=== PATIENT | male | born 1965 | race Caucasian/White ===

== ENCOUNTER 2016-09-06 19:06 | Emergency (ER) | payer MEDICARE ==
[2016-09-06 19:31] VITALS: BP 183/116
[2016-09-06 19:50] LABS: Hemoglobin 17.2 gm/dL (13.5-18.0); Mean Cell Volume 91.9 fl (78-100); Mean Corpuscular Hemoglobin 32.3 pg (27-31); Mean Corpuscular Hgb Conc 35.1 g/dl (32-36); Mean Platelet Volume 10.3 fl (6.0-9.5); Neutrophil # 5.3 K/mm3 (1.3-6.0); Neutrophil % 57.4 % (42-75.0); Platelet Count 165 K/mm3 (150-450); Red Blood Count 5.33 M/mm3 (4.7-6.0); Red Cell Distribution Width 13.4 % (11.5-14.0); White Blood Count 9.2 K/mm3 (4.0-10.5)
[2016-09-06 20:04] LABS: Albumin * 3.6 gm/dl (3.4-5.0); Anion Gap 16.6 mmol/L (6.8-13.8); BUN/Creatinine Ratio 15.5 (9.0-21.6); Bilirubin, Total 0.3 mg/dL (0.0-1.1); Ca. Corrected For Albumin 8.8 mg/dL (8.4-10.2); Calcium * 8.8 mg/dL (7.9-10.9); Carbon Dioxide 23.4 mmol/L (24-32.6); Total Protein 7.8 gm/dL (6.2-8.2)
--- NOTE | 2016-09-06 21:18 | ERNOTE ---
Abdominal HPI - General Chief Complaint: Abdominal Pain Time Seen by Provider: 09/06/16 21:08 Source: patient Exam Limitations: no limitations - Immun/Allergies/Home Medications Immunizatons: IMMUNIZATION HX Immunizations Up to Date Yes History of Influenza Vaccine No Hx Pneumococcal Vaccination No Allergies/Adverse Reactions: Allergies No Known Allergies Allergy (Verified 02/10/15 11:26) Home Medications: HOME MEDICATIONS Acetaminophen [Tylenol] 650 mg PO QID PRN #0 tablet 01/21/13 [Last Taken Unknown ] Albuterol Sulfate/Ipratropium [Duoneb 2.5-0.5MG/3ML Soln] 3 ml IH Q4H PRN #0 nebu 01/21/13 [Last Taken Unknown] Lisinopril [Zestril] 10 mg PO DAILY #0 tablet 01/21/13 [Last Taken Unknown] Insulin Glargine,Hum.rec.anlog [Lantus] 100 unit SQ BID 05/22/13 [Last Taken Unknown] Rosuvastatin Calcium [Crestor] 20 mg PO HS 08/26/13 [Last Taken Unknown] Carisoprodol [Soma] 350 mg PO QID #30 tab 09/02/15 [Last Taken Unknown] Oxycodone HCl/Acetaminophen [Percocet 5-325 mg Tablet] 1 each PO Q4H PRN #30 tablet 09/02/15 [Last Taken Unknown] - History of Present Illness Narrative: 3 days of increasing abdominal pain in the epigastrium. No vomiting. Diarrhea today Timing: getting worse Quality: moderate, severe, cramping, fullness Activities at Onset: none Modifying Factors - (Improves): Present: lying down Modifying Factors - (Worsens): Present: eating, sitting up Associated Symptoms: Absent: nausea, vomiting Review of Systems - Review of Systems Constitutional: Absent: recent illness, fever, chills EYE: Present: no symptoms reported ENT: Present: no symptoms reported Respiratory: Present: no symptoms reported Cardiology: Present: no symptoms reported Gastrointestinal/Abdominal: Present: See HPI, diarrhea, abdominal pain, eating less - today Genitourinary: Present: no symptoms reported Musculoskeletal: Present: no symptoms reported Skin: Present: no symptoms reported Neurological: Present: no symptoms reported Endocrine: Present: no symptoms reported Hematologic/Lymphatic: Present: no symptoms reported Psych: Present: no symptoms reported - Patient's Past Medical History Patient History - Medical: Diabetes Type 2 Insulin Dependent, Other Patient History - Cancer: No Hx of Cancer Patient History - Surgical Procedures: Back Surgery, Other - Family History motehr Family History - Medical: - Social History Living Situations: spouse Smoking Status: Current every day smoker Alcohol Use: none Drug Use: none Physical Exam - Physical Exam General Appearance: Present: wd/wn, alert, no apparent distress Eye Exam: Normal inspection: bilateral Ears, Nose, Throat: Present: hearing grossly normal Neck: Present: normal inspection, nontender Respiratory: Present: no respiratory distress, no accessory muscle use Cardiovascular/Chest: Present: regular rate, rhythm, no murmur Gastrointestinal/Abdominal: Present: normal bowel sounds, tenderness - epigastrium, distended - mildly, more firm upper quads. Absent: guarding, rebound Extremity Exam: Present: normal inspection, normal range of motion Neurological Exam: Present: alert, oriented, normal mood/affect, no motor/ sensory deficits Skin Exam: Present: normal color, warm/dry ED Progress - Results and Orders Patient's Lab Results:: I have reviewed the patient's lab results. Results and Orders: Laboratory Tests 09/06/16 09/06/16 09/06/16 19:50 19:50 21:00 WBC 9.2 Hgb 17.2 Hct 49.0 Plt Count 165 Sodium 136 Potassium 4.0 Chloride 100 Carbon Dioxide 23.4 L Anion Gap 16.6 H BUN 13 Creatinine 0.84 Random Glucose 234 H Calcium 8.8 Total Bilirubin 0.3 AST 29 ALT 49 Alkaline Phosphatase 92 Total Protein 7.8 Albumin 3.6 Amylase 35 Lipase 85 Urine Color Yellow Urine Appearance Clear Urine pH 7.0 Ur Specific [place] 1.015 Urine Protein Negative Urine Glucose (UA) >=1000 H Urine Ketones Negative Urine Blood Negative Urine Nitrate Negative Urine Bilirubin Negative Urine Urobilinogen Normal Ur Leukocyte Esterase Negative Urine RBC None seen Urine WBC None seen Ur Epithelial Cells 0-5 Urine Bacteria None seen Urine Culture Comments No culture indicated - Vital Signs Patient's Vital Signs:: I have reviewed the patient's vital signs. Vital Signs: Vital Signs 09/06/16 19:28 Temperature 37.1 C Pulse Rate 93 Respiratory 20 Rate Blood Pressure 183/116 O2 Sat by Pulse 97 Oximetry - X-Ray X-Ray #1 X-Ray: abdomen Interpretation: Interp. by me X-ray Comments: non-specific gas pattern and moderate stool retention - Progress/Reassessment Chief Complaint: Abdominal Pain Departure - Departure Clinical Impression: Constipation Qualifiers: Constipation type: unspecified constipation type Qualified Code(s): K59.00 - Constipation, unspecified Disposition: Nursing Home Condition: Good Instructions: Constipation, Adult, [id number] Additional Instructions: Start miralax 1 scoop daily in 8 ounces of water.
[2016-09-06 21:29] LABS: Urine Bilirubin Negative (NEGATIVE); Urine Blood Negative /ul (NEGATIVE); Urine Ketone Negative (NEGATIVE); Urine Nitrite Negative (NEGATIVE); Urine Protein Negative (NEGATIVE); Urine Specific Gravity 1.015 SP.GR. (1.005-1.030); Urine Urobilinogen Normal (NORMAL)
[2016-09-06 21:47] LABS: Urine Appearance Clear; Urine Bacteria None Seen; Urine Color Yellow; Urine RBC None Seen /hpf (0-5); Urine WBC None Seen /hpf (0-5)
== END 2016-09-06 23:45 ==
LOC: ER 19:06
DX: K59.00 Constipation, unspecified (principal)

== ENCOUNTER 2016-10-06 17:12 | Emergency (ER) | payer MEDICARE ==
[2016-10-06 17:20] VITALS: BP 111/56
[2016-10-06] MEDS ORDERED: HYDROcodone/ACETAMINOPHEN 1 EACH TABLET PO ONE (18:37)
[2016-10-06] MEDS ORDERED: HYDROcodone/ACETAMINOPHEN 1 EACH TABLET ONE (18:54)
[2016-10-06] MEDS ORDERED: NEOMY SULF/POLYMYX B SULF/HC 100 DROP BTL ONE (19:23)
[2016-10-06] MEDS ORDERED: NEOMY SULF/POLYMYX B SULF/HC 100 DROP BTL LEFT EAR ONE (19:31)
--- NOTE | 2016-10-06 19:35 | ERNOTE ---
ENT HPI Date of Service: 10/06/16 Presenting Symptoms: other - left ear pain Time Seen by Provider: 10/06/16 17:37 Source: patient Exam Limitations: no limitations - Immun/Allergies/Home Medications Immunizations: IMMUNIZATION HX Immunizations Up to Date Yes History of Influenza Vaccine No Hx Pneumococcal Vaccination No Allergies/Adverse Reactions: Allergies Allergy/AdvReac Type Severity Reaction Status Date / Time No Known Allergies Allergy Verified 10/06/16 17:20 Home Medications: HOME MEDICATIONS Acetaminophen [Tylenol] 650 mg PO QID PRN #0 tablet 01/21/13 [Last Taken Unknown ] Albuterol Sulfate/Ipratropium [Duoneb 2.5-0.5MG/3ML Soln] 3 ml IH Q4H PRN #0 nebu 01/21/13 [Last Taken Unknown] Lisinopril [Zestril] 10 mg PO DAILY #0 tablet 01/21/13 [Last Taken Unknown] Insulin Glargine,Hum.rec.anlog [Lantus] 100 unit SQ BID 05/22/13 [Last Taken Unknown] Rosuvastatin Calcium [Crestor] 20 mg PO HS 08/26/13 [Last Taken Unknown] Carisoprodol [Soma] 350 mg PO QID #30 tab 09/02/15 [Last Taken Unknown] Oxycodone HCl/Acetaminophen [Percocet 5-325 mg Tablet] 1 each PO Q4H PRN #30 tablet 09/02/15 [Last Taken Unknown] Sulfamethoxazole/Trimethoprim [Bactrim Ds] 1 tab PO BID #30 tablet 10/06/16 [ Last Taken Unknown] - History of Present Illness Narrative: patient presents to ED from [facility] with complaints of left ear pain x 2 weeks progressively worse. Patient states that he has been on Amoxicillin x 1 week without improvement. Complains of worsening left ear pain radiating into left jaw. Date (Duration): 09/22/16 Severity: Present: moderate ENT Location: Present: ear (L) Prearrival Treatment: Present: prescription meds Modifying Factors - Improves: Reports: nothing Modifying Factors - Worsens: Reports: activity, coughing Associated Symptoms - ENT: Reports: fever, nasal congestion/drainage, facial pain/swelling. Denies: malaise, poor fluid intake, cough, voice change, sore throat, tooth pain, jaw swelling, change in hearing, ear drainage, headache Prior Treament: Reports: recently seen, treated by physician, currently on antibiotics Review of Systems - Review of Systems Constitutional: Present: fever, chills. Absent: recent illness, diaphoresis, weakness, fatigue, malaise, weight loss EYE: Absent: eye pain, eye discharge, blurred vision, double vision ENT: Present: ear pain, nasal drainage. Absent: ear discharge, pulling on ears , nose pain, nose congestion, sore throat, throat swelling Respiratory: Absent: shortness of breath, cough, orthopnea, wheezing, stridor Cardiology: Absent: chest pain, palpitations, syncope, edema Gastrointestinal/Abdominal: Present: no symptoms reported. Absent: nausea, vomiting, diarrhea Genitourinary: Present: no symptoms reported Musculoskeletal: Present: no symptoms reported Skin: Present: no symptoms reported Neurological: Present: no symptoms reported Endocrine: Present: no symptoms reported Hematologic/Lymphatic: Present: no symptoms reported - Patient's Past Medical History Patient History - Medical: Diabetes Type 2 Insulin Dependent, Other Patient History - Cardiac/Respiratory: No pertinent hx Patient History - Cancer: No Hx of Cancer Patient History - Surgical Procedures: Back Surgery, Other Patient History - Other: None - Family History motehr Family History - Medical: - Social History Living Situations: spouse Abuse History: No History of abuse Psych History: No pertinent hx Smoking Status: Current every day smoker Have you smoked in the past 12 months: Yes Do you dip or chew tobacco: No Alcohol Use: none Drug Use: none - Immunizations Immunizations Up to Date: Yes Hx Pneumococcal Vaccination: No History of Influenza Vaccine: No Physical Exam - Physical Exam General Appearance: Present: wd/wn, alert, no apparent distress Eye Exam: Normal inspection: bilateral, PERRL: bilateral Ears, Nose, Throat: Present: hearing grossly normal, abnormal TM (L) - reddened TM, reddened ear canal with drainage, warm/tender outer ear and tragus, sinus pain/drainage, pharyngeal erythema. Absent: abnormal TM (R), cerumen impaction , nasal congestion, normal pharynx, pharyngeal swelling, tonsillar exudate, tonsillar swelling, dry mucous membranes Neck: Present: normal inspection, nontender, full range of motion. Absent: lymphadenopathy (R), lymphadenopathy (L) Respiratory: Present: no respiratory distress, normal breath sounds, no accessory muscle use, chest nontender, lungs clear Cardiovascular/Chest: Present: regular rate, rhythm, no murmur, normal peripheral pulses Peripheral Pulses: N=norm/S=strong/W=weak/B=bound/A=absent: Radial (R): Normal, Radial (L): Normal Gastrointestinal/Abdominal: Present: normal bowel sounds, nontender, nondistended, soft, no organomegaly Rectal Exam: Present: deferred Male Genitals Exam: Present: deferred Back Exam: Present: normal range of motion Extremity Exam: Present: normal inspection, non-tender, no edema, normal range of motion Neurological Exam: Present: alert, oriented, normal mood/affect, no motor/ sensory deficits Skin Exam: Present: normal color, warm/dry Lymphatic Exam: Present: no adenopathy ED Progress - Results and Orders Patient's Lab Results:: I have reviewed the patient's lab results. - Vital Signs Patient's Vital Signs:: I have reviewed the patient's vital signs. Vital Signs: Vital Signs 10/06/16 17:15 Temperature 35.9 C L Pulse Rate 86 Respiratory 14 Rate Blood Pressure 111/56 O2 Sat by Pulse 96 Oximetry - Progress/Reassessment Chief Complaint: Earache Progress:: Unchanged Departure Clinical Impression: Cellulitis of left ear Otitis externa Qualifiers: Otitis externa type: unspecified type Laterality: left Chronicity: acute Qualified Code(s): H60.502 - Unspecified acute noninfective otitis externa, left ear - Departure Disposition: Long Term Condition: Good Instructions: Cellulitis, Adult, [id number], Otitis Externa, [id number] Additional Instructions: No Q tips, ear plugs or ear buds. Follow up in 48 hours to assess improvement. Stop Amoxicillin. Cortisporin ear drops 4x a day Referrals: [Primary Care Provider] - Prescriptions: Sulfamethoxazole/Trimethoprim [Bactrim Ds] 1 tab PO BID #30 tablet
== END 2016-10-06 19:40 ==
LOC: ER 17:12
DX: H60.12 Cellulitis of left external ear (principal); H60.502 Unspecified acute noninfective otitis externa, left ear; F17.210 Nicotine dependence, cigarettes, uncomplicated

== ENCOUNTER 2019-07-01 09:33 | Inpatient (IN) ==
[2019-07-01] MEDS ORDERED: ALBUTEROL SULFATE/IPRATROPIUM 3 ML NEBU IH ONE ×2 (09:38→09:41)
[2019-07-01] MEDS ORDERED: METHYLPREDNISOLONE SOD SUCC/PF 40 MG/ML VIAL IV ONE (09:41)
--- NOTE | 2019-07-01 09:49 | ERNOTE ---
Dyspnea - Date Date of Service: 07/01/19 - General Presenting Symptoms: shortness of breath Time Seen by Provider: 07/01/19 09:35 Source: patient Exam Limitations: other - The history was slightly limited due to his dyspnea, tachypnea, and hypoxia, since he is at risk of respiratory decompensation. - Immun/Allergies/Home Medications Immunizations: IMMUNIZATION HX Immunizations Up to Date Yes History of Influenza Vaccine No Hx Pneumococcal Vaccination No Allergies/Adverse Reactions: Allergies No Known Allergies Allergy (Verified 07/01/19 12:53) Home Medications: HOME MEDICATIONS gabapentin 600 mg tablet 600 mg PO TID #90 tab 11/17/18 [Last Taken Unknown] ipratropium-albuterol 0.5 mg-3 mg(2.5 mg base)/3 mL nebulization soln 3 ml IH Q4H PRN #180 ml 11/17/18 [Last Taken Unknown] levalbuterol tartrate 45 mcg/actuation aerosol inhaler 2 inh IH Q4H #15 g 11/17/18 [Last Taken Unknown] lisinopril 10 mg tablet 10 mg PO DAILY #30 tab 11/17/18 [Last Taken 06/29/19] tramadol 50 mg tablet 50 mg PO Q6H PRN #60 tab 11/18/18 [Last Taken Unknown] insulin detemir U-100 100 unit/mL subcutaneous solution 100 unit SUBCUT BID #60 ml 01/21/19 [Last Taken Unknown] Albuterol Sulfate/Ipratropium [Duoneb 2.5-0.5MG/3ML Soln] 3 ml INHALATION QID #150 vial 05/11/19 [Last Taken Unknown] Oxybutynin Chloride [Ditropan Xl] 10 mg PO DAILY 07/01/19 [Last Taken Unknown] busPIRone HCL [Buspar] 10 mg PO BID 07/01/19 [Last Taken Unknown] - History of Present Illness Narrative: This patient is a 54-year-old male who is here with shortness of breath. He has a history of COPD and is on albuterol. He used one nebulizer treatment about 2 hours ago. His symptoms began on Saturday, 2 days ago. He feels like he has caught a cold. He has stuffy had and runny nose. He has a cough which has been productive. He does not feel that he has had a fever. He denies chest pain. He is not on home oxygen. He was here recently (past few months) and told he had fluid in his lungs. He denies heart disease. The past medical history includes: COPD, depression, DM, GERD, HTN and HLD. The social history is positive for current tobacco use. Review of Systems - Review of Systems Constitutional: Absent: fever EYE: Present: no symptoms reported ENT: Present: nose congestion, nasal drainage Respiratory: Present: shortness of breath, cough Cardiology: Absent: chest pain Gastrointestinal/Abdominal: Absent: nausea, vomiting, diarrhea Genitourinary: Absent: frequency, dysuria Musculoskeletal: Present: no symptoms reported Skin: Present: no symptoms reported Neurological: Absent: headache Endocrine: Present: other - He is diabetic. Hematologic/Lymphatic: Present: no symptoms reported Psych: Present: no symptoms reported Medical History (Last Reviewed 07/01/19 @ 12:53 by Mirna Win RN) Hyperlipidemia associated with type 2 diabetes mellitus (Chronic) New lab database Uncontrolled diabetes mellitus (Chronic) bmp, hba1c Current every day smoker (Chronic) stop smoking Cardiac dysrhythmia (Acute) ecg, 24 hr holter, echo MRSA (methicillin resistant Staphylococcus aureus) COPD (chronic obstructive pulmonary disease) Onset Date: Unknown Chronic GERD Onset Date: Unknown Depression Onset Date: Unknown Diabetes Onset Date: Unknown Hyperlipidemia due to dietary fat intake Onset Date: Unknown Hypertension Onset Date: Unknown Sexual dysfunction Onset Date: Unknown Surgical History: Surgical History (Last Reviewed 07/01/19 @ 12:53 by Mirna Win RN) History of back surgery Onset Date: 08/2005 Spine/Hip fusion L-5 History of carpal tunnel release Onset Date: 04/11/00 04/11/2000 Dr Villanueva- Right hand 04/29/2000 Left hand Hx of colonoscopy with polypectomy Onset Date: 08/28/13 - tubular adenoma x2, hyperplastic polyp x2. diverticulosis. Recheck in 5 years Hx of nasal septoplasty Onset Date: 01/24/06 Hx of tonsillectomy Onset Date: Unknown Family History: Family History (Last Reviewed 07/01/19 @ 12:53 by Mirna Win RN) Sister Alive and well Father Multiple sclerosis Mother Cancer Breast Cancer Social History: (Last Reviewed 07/01/19 @ 12:53 by Mirna Win RN) Social History: Marital status: household members: spouse number of children: 4 current occupational status: disabled Highest education level completed: Associate degree: occupat Service: Yes Tobacco: Smoking Status: Current every day smoker Alcohol: alcohol intake: never Dietary Habits: caffeine: No Physical Exam - Physical Exam General Appearance: Present: wd/wn, alert, moderate distress Head Exam: Present: normal inspection, no evidence of injury Eye Exam: Normal inspection: bilateral Ears, Nose, Throat: Present: normal ENT inspection Neck: Present: normal inspection. Absent: lymphadenopathy (R), lymphadenopathy (L) Respiratory: Present: respiratory distress, wheezing Cardiovascular/Chest: Present: no murmur, tachycardia Gastrointestinal/Abdominal: Present: normal bowel sounds, nontender, nondistended, soft Back Exam: Present: normal inspection Extremity Exam: Present: normal inspection Neurological Exam: Present: alert, normal mood/affect, no motor/sensory deficits - No gross lateralizing deficit Skin Exam: Present: warm/dry, pallor - Or grayish color Progress - Results and Orders Patient's Lab Results:: I have reviewed the patient's lab results. - Vital Signs Patient's Vital Signs:: I have reviewed the patient's vital signs. Vital Signs: Vital Signs 07/01/19 09:42 Temperature 36.5 C Pulse Rate 104 H Respiratory Rate 29 H Blood Pressure 162/119 H O2 Sat by Pulse Oximetry 86 L - EKG EKG #1 EKG read: Interp. by me EKG Comments: Sinus rhythm with premature complexes Rate 106 Right axis deviation Nonspecific T wave abnormalities. There are premature beats involving V4, V5, and V6 that limit interpretation. It overall appears similar to a previous tracing of 02/10/2015 EKG #2 EKG read: Interp. by me EKG Comments: Sinus tachycardia Rate 110 Right axis deviation Nonspecific ST-T wave abnormalities. Compared to the prior EKG, the lateral leads are more usable. Compared to the EKG from January,, the nonspecific changes appear to be increased. - X-Ray X-Ray #2 X-Ray: chest Interpretation: Reviewed by me X-ray Comments: TWO VIEW CHEST Comparison: 07/01/2019, 05/11/2019 Technique: Upright frontal lateral views of the chest were obtained. Findings: The cardiac silhouette is borderline in size. The mediastinum and hilum are with in normal limits. There is central pulmonary congestion with interstitial prominence, suggesting interstitial edema. The lung markings are increased in the right lung base compared to the 05/11/2019 study, concerning for the possibility of pneumonia. The remaining lung mccray are clear.. IMPRESSION: 1. PULMONARY CONGESTION WITH SUGGESTION OF EARLY INTERSTITIAL EDEMA. 2. INCREASED PARENCHYMAL DENSITY IN THE RIGHT INFRAHILAR/RIGHT LOWER LUNG ZONE, CONCERNING FOR DEVELOPING PNEUMONIA. Electronically signed by Jakub Winchester M.D.. X-Ray #1 X-Ray: chest Interpretation: Reviewed by me X-ray Comments: HISTORY: dyspnea, hypoxia ONE VIEW CHEST Comparison: 05/11/2019 Technique: A single portable AP view of the chest were obtained. Findings: The cardiac silhouette is borderline in size, but unchanged. The mediastinum and hilum are unchanged. The central pulmonary vascularity is prominent with mild prominence of the interstitial markers. I do not see evidence for an effusion. There is questionable increased density in the right infrahilar area. IMPRESSION: 1. CENTRAL PULMONARY CONGESTION WITH MILDLY PROMINENT INTERSTITIAL MARKINGS SUGGESTING EARLY INTERSTITIAL EDEMA. 2. QUESTIONABLE INFILTRATE IN THE RIGHT INFRAHILAR AREA; THIS MAY PROJECTIONAL ON THIS PORTABLE STUDY. FOLLOW-UP PA AND LATERAL CHEST X-RAY IS RECOMMENDED WITH THE PATIENT'S CONDITION PERMITS Electronically signed by Jakub Winchester M.D.. Plan - Plan Plan: He was initially given Solu-Medrol and continuous Nebulizer treatments for the first hour. He was feeling much better after that. With the CXR finding and elevated BNP, he was given a low dose of Lasix. 07/01/19 12:12 He became hypoxic without oxygen, after going to x-ray. We discussed the labs and x-rays. He is willing to stay. 07/01/19 12:18 Dr. Edwards agrees to admit the patient. Departure Clinical Impression: CHF (congestive heart failure), COPD exacerbation Pneumonia Qualifiers: Pneumonia type: due to unspecified organism Laterality: bilateral Lung location: unspecified part of lung Qualified Code(s): J18.9 - Pneumonia, unspecified organism - Departure Disposition: Still a patient Condition: Stable
[2019-07-01 10:08] LABS: Hematocrit 42.7 % (42.0-52.0); Hemoglobin 14.2 gm/dL (13.5-18.0); Mean Cell Volume 96.6 fl (78-100); Mean Corpuscular Hemoglobin 32.1 pg (27-31); Mean Corpuscular Hgb Conc 33.3 g/dl (32-36); Mean Platelet Volume 9.9 fl (8-11.3); Neutrophil # 9.8 K/mm3 (1.3-6.0); Neutrophil % 84.9 % (42-75.0); Platelet Count 181 K/mm3 (150-450); Red Blood Count 4.42 M/mm3 (4.7-6.0); Red Cell Distribution Width 14.6 % (11.5-14.0); White Blood Count 11.5 K/mm3 (4.0-10.5)
[2019-07-01 10:36] LABS: Albumin * 3.4 gm/dl (3.4-5.0); Anion Gap 13.5 mmol/L (6.8-13.8); Ca. Corrected For Albumin 8.6 mg/dL (8.4-10.2); Calcium * 8.4 mg/dL (7.9-10.9); Carbon Dioxide 26.6 mmol/L (24-32.6); Potassium 4.1 mmol/L (3.4-4.6); Total Protein 7.1 gm/dL (6.2-8.2)
[2019-07-01] MEDS ORDERED: FUROSEMIDE 10 MG/ML VIAL IV ONE (11:29)
[2019-07-01] MEDS ORDERED: cefTRIAXone SODIUM 1,000 MG/100 ML BAG IV ONE (12:07)
[2019-07-01] MEDS ORDERED: NON-FORMULARY 1 DOSE DOSE IV SCH (12:15)
--- NOTE | 2019-07-01 13:10 | HP ---
Chief Complaint - Chief Complaint Date of Service: 07/01/19 Time of Service: 12:50 Chief Complaint: Shortness of breath History of Present Illness: Jakub musa is a 54-year-old white male with known COPD and continued nicotine abuse. Became acutely short of breath today and presented to the emergency room where he was found to have some fluid overload and acute exacerbation of COPD and pneumonia. He has been coughing but minimally productive. He has received diuretics and respiratory therapy treatment in the emergency room. Cultures have been drawn and antibiotics started. He is admitted to inpatient status but all confirmed that appropriateness. Medical History (Last Reviewed 07/01/19 @ 12:53 by Mirna Win RN) Hyperlipidemia associated with type 2 diabetes mellitus (Chronic) New lab database Uncontrolled diabetes mellitus (Chronic) bmp, hba1c Current every day smoker (Chronic) stop smoking Cardiac dysrhythmia (Acute) ecg, 24 hr holter, echo MRSA (methicillin resistant Staphylococcus aureus) COPD (chronic obstructive pulmonary disease) Onset Date: Unknown Chronic GERD Onset Date: Unknown Depression Onset Date: Unknown Diabetes Onset Date: Unknown Hyperlipidemia due to dietary fat intake Onset Date: Unknown Hypertension Onset Date: Unknown Sexual dysfunction Onset Date: Unknown Surgical History: Surgical History (Last Reviewed 07/01/19 @ 12:53 by Mirna Win RN) History of back surgery Onset Date: 08/2005 Spine/Hip fusion L-5 History of carpal tunnel release Onset Date: 04/11/00 04/11/2000 Dr Villanueva- Right hand 04/29/2000 Left hand Hx of colonoscopy with polypectomy Onset Date: 08/28/13 - tubular adenoma x2, hyperplastic polyp x2. diverticulosis. Recheck in 5 years Hx of nasal septoplasty Onset Date: 01/24/06 Hx of tonsillectomy Onset Date: Unknown Family History: Family History (Last Reviewed 07/01/19 @ 12:53 by Mirna Win RN) Sister Alive and well Father Multiple sclerosis Mother Cancer Breast Cancer Social History: (Last Reviewed 07/01/19 @ 12:53 by Mirna Win RN) Social History: Marital status: household members: spouse number of children: 4 current occupational status: disabled Highest education level completed: Associate degree: occupat Service: Yes Tobacco: Smoking Status: Current every day smoker Alcohol: alcohol intake: never Dietary Habits: caffeine: No Immunizations: IMMUNIZATION HX Immunizations Up to Date Yes History of Influenza Vaccine No Hx Pneumococcal Vaccination No Allergies/Adverse Reactions: Allergies Allergy/AdvReac Type Severity Reaction Status Date / Time No Known Allergies Allergy Verified 07/01/19 12:53 Home Medications: HOME MEDICATIONS gabapentin 600 mg tablet 600 mg PO TID #90 tab 11/17/18 [Last Taken Unknown] ipratropium-albuterol 0.5 mg-3 mg(2.5 mg base)/3 mL nebulization soln 3 ml IH Q4H PRN #180 ml 11/17/18 [Last Taken Unknown] levalbuterol tartrate 45 mcg/actuation aerosol inhaler 2 inh IH Q4H #15 g 11/17/18 [Last Taken Unknown] lisinopril 10 mg tablet 10 mg PO DAILY #30 tab 11/17/18 [Last Taken 06/29/19] tramadol 50 mg tablet 50 mg PO Q6H PRN #60 tab 11/18/18 [Last Taken Unknown] insulin detemir U-100 100 unit/mL subcutaneous solution 100 unit SUBCUT BID #60 ml 01/21/19 [Last Taken Unknown] Albuterol Sulfate/Ipratropium [Duoneb 2.5-0.5MG/3ML Soln] 3 ml INHALATION QID #150 vial 05/11/19 [Last Taken Unknown] Exam - Exam Vital Signs: Vital Signs - Last Taken Temp 37.2 C 07/01/19 12:54 Pulse 105 H 07/01/19 12:54 Resp 16 07/01/19 12:54 BP 155/86 H 07/01/19 12:54 Pulse Ox 90 L 07/01/19 12:54 Diagnostic Studies: Abnormal Lab Results 07/01/19 07/01/19 07/01/19 Range/Units 09:50 09:50 10:00 WBC 11.5 H (4.0-10.5) K/mm3 RBC 4.42 L (4.7-6.0) M/mm3 MCH 32.1 H (27-31) pg RDW 14.6 H (11.5-14.0) % Immature Gran % (Auto) 0.50 H (0.001-0.429) % Immature Gran # (Auto) 0.06 H (0.000-0.0310) K/mm3 Neutrophils % 84.9 H (42-75.0) % Lymphocytes % 6.9 L (20-51) % Neutrophils # 9.8 H (1.3-6.0) K/mm3 Lymphocytes # 0.80 L (1.5-3.5) k/mm3 Total CO2 25.2 H (19.0-24.0) mmol/L Plasma Sodium 144 H (130-142) mmol/L Random Glucose 201 H (70-110) mg/dL B-Natriuretic Peptide 1455 H (5-175) pg/mL Laboratory Results WBC 11.5 K/mm3 (4.0-10.5) H 07/01/19 09:50 RBC 4.42 M/mm3 (4.7-6.0) L 07/01/19 09:50 Hgb 14.2 gm/dL (13.5-18.0) 07/01/19 09:50 Hct 42.7 % (42.0-52.0) 07/01/19 09:50 MCV 96.6 fl (78-100) 07/01/19 09:50 MCH 32.1 pg (27-31) H 07/01/19 09:50 MCHC 33.3 g/dl (32-36) 07/01/19 09:50 RDW 14.6 % (11.5-14.0) H 07/01/19 09:50 Plt Count 181 K/mm3 (150-450) 07/01/19 09:50 MPV 9.9 fl (8-11.3) 07/01/19 09:50 Immature Gran % (Auto) 0.50 % (0.001-0.429) H 07/01/19 09:50 Immature Gran # (Auto) 0.06 K/mm3 (0.000-0.0310) H 07/01/19 09:50 Neutrophils % 84.9 % (42-75.0) H 07/01/19 09:50 Lymphocytes % 6.9 % (20-51) L 07/01/19 09:50 Monocytes % 7.2 % (0.0-9) 07/01/19 09:50 Eosinophils % 0.2 % (0.0-3.0) 07/01/19 09:50 Basophils % 0.3 % (0.0-1.0) 07/01/19 09:50 Nucleated RBC % 0.0 k/mm3 (0-1) 07/01/19 09:50 Neutrophils # 9.8 K/mm3 (1.3-6.0) H 07/01/19 09:50 Lymphocytes # 0.80 k/mm3 (1.5-3.5) L 07/01/19 09:50 Monocytes # 0.8 k/mm3 (0.0-1.0) 07/01/19 09:50 Eosinophils # 0.0 k/mm3 (0.0-0.7) 07/01/19 09:50 Absolute Basophils 0.0 k/mm3 (0.0-0.1) 07/01/19 09:50 pCO2 37.5 mmHg (35.0-48.0) 07/01/19 10:00 pO2 83.1 mmHg (83.0-108.0) 07/01/19 10:00 HCO3 24.1 mmol/L (21.0-28.0) 07/01/19 10:00 Total CO2 25.2 mmol/L (19.0-24.0) H 07/01/19 10:00 Base Excess 0.0 mmol/L (-2.0-3.0) 07/01/19 10:00 ABG pH 7.43 (7.35-7.45) 07/01/19 10:00 ABG O2 Sat (Measured) 96.5 % (94.0-98.0) 07/01/19 10:00 Sodium 142 mmol/L (132-142) 07/01/19 09:50 Plasma Sodium 144 mmol/L (130-142) H 07/01/19 09:50 Potassium 4.1 mmol/L (3.4-4.6) 07/01/19 09:50 Chloride 106 mmol/L (97-106) 07/01/19 09:50 Carbon Dioxide 26.6 mmol/L (24-32.6) 07/01/19 09:50 Anion Gap 13.5 mmol/L (6.8-13.8) 07/01/19 09:50 BUN 10 mg/dL (6-23) 07/01/19 09:50 Creatinine 0.77 mg/dL (0.4-1.4) 07/01/19 09:50 Est GFR (Non-Af Amer) 111 mL/min (60-130) 07/01/19 09:50 BUN/Creatinine Ratio 13.0 (9.0-21.6) 07/01/19 09:50 Random Glucose 201 mg/dL (70-110) H 07/01/19 09:50 Calcium 8.4 mg/dL (7.9-10.9) 07/01/19 09:50 Calcium Adj for Albumin 8.6 mg/dL (8.4-10.2) 07/01/19 09:50 Total Bilirubin 1.0 mg/dL (0.0-1.1) 07/01/19 09:50 AST 18 U/L (0-48) 07/01/19 09:50 ALT 34 U/L (19-67) 07/01/19 09:50 Alkaline Phosphatase 113 U/L (50-170) 07/01/19 09:50 B-Natriuretic Peptide 1455 pg/mL (5-175) H 07/01/19 09:50 Total Protein 7.1 gm/dL (6.2-8.2) 07/01/19 09:50 Albumin 3.4 gm/dl (3.4-5.0) 07/01/19 09:50
[2019-07-01] MEDS ORDERED: AZITHROMYCIN 500 MG in DEXTROSE 5 % IN WATER 250 ML IV ONE ×2 (13:15)
[2019-07-01] MEDS ORDERED: ALBUTEROL SULFATE/IPRATROPIUM 3 ML NEBU IH PRN (14:33)
[2019-07-01] MEDS ORDERED: traMADol HCL 50 MG TABLET PO PRN (14:33)
[2019-07-01] MEDS ORDERED: FLU VACC QS2019-20(6MOS UP)/PF 60 MCG/0.5 ML SYRINGE IM ONE (15:00)
[2019-07-01] MEDS: GABAPENTIN 600 MG TABLET PO SCH (17:03)
[2019-07-01] MEDS: ACETAMINOPHEN 500 MG TABLET PO PRN (17:48)
[2019-07-01] MEDS: ALBUTEROL SULFATE/IPRATROPIUM 3 ML NEBU IH SCH (18:05)
[2019-07-01] MEDS ORDERED: LEVALBUTEROL HCL 1.25 MG/3 ML AMPUL IH SCH (19:00)
[2019-07-01] MEDS: INSULIN GLARGINE,HUM.REC.ANLOG 100 UNITS/ML VIAL SC SCH (20:39)
[2019-07-01] MEDS: busPIRone HCL 5 MG TABLET PO SCH (20:39)
[2019-07-02] MEDS: ALBUTEROL SULFATE/IPRATROPIUM 3 ML NEBU IH SCH ×5 (05:40→18:20)
[2019-07-02 06:34] LABS: Mean Cell Volume 97.6 fl (78-100); Mean Corpuscular Hemoglobin 32.4 pg (27-31); Mean Corpuscular Hgb Conc 33.2 g/dl (32-36); Platelet Count 202 K/mm3 (150-450); Red Blood Count 4.63 M/mm3 (4.7-6.0); Red Cell Distribution Width 14.9 % (11.5-14.0); White Blood Count 13.8 K/mm3 (4.0-10.5)
[2019-07-02 06:35] LABS: Neutrophil # 11.1 K/mm3 (1.3-6.0); Neutrophil % 80.4 % (42-75.0)
[2019-07-02 06:51] LABS: BUN/Creatinine Ratio 20.9 (9.0-21.6)
[2019-07-02 06:52] LABS: Albumin * 3.2 gm/dl (3.4-5.0); Anion Gap 10.4 mmol/L (6.8-13.8); Bilirubin, Total 0.6 mg/dL (0.0-1.1); Carbon Dioxide 28.9 mmol/L (24-32.6); Potassium 3.3 mmol/L (3.4-4.6); Total Protein 7.1 gm/dL (6.2-8.2)
[2019-07-02 06:53] LABS: Ca. Corrected For Albumin 8.7 mg/dL (8.4-10.2); Calcium * 8.4 mg/dL (7.9-10.9)
[2019-07-02] MEDS: busPIRone HCL 5 MG TABLET PO SCH ×2 (09:11→21:21)
[2019-07-02] MEDS: LISINOPRIL 10 MG TABLET PO SCH (09:12)
[2019-07-02] MEDS: OXYBUTYNIN CHLORIDE 5 MG TABLET PO SCH ×2 (09:12→21:21)
[2019-07-02] MEDS: GABAPENTIN 600 MG TABLET PO SCH ×3 (09:13→18:03)
[2019-07-02] MEDS: INSULIN GLARGINE,HUM.REC.ANLOG 100 UNITS/ML VIAL SC SCH ×2 (09:13→21:21)
--- NOTE | 2019-07-02 09:16 | PN ---
Subjective - Date and Time Seen Date: 07/02/19 Time: 08:30 Subjective Narrative: Jakub had an uneventful night until about 5:00 this morning when he went into atrial fibrillation with RVR. His oxygen was off and his saturation was in the 88% range. An EKG was done verifying the atrial fibrillation. He had a scheduled breathing treatment and while administering that he converted back into normal sinus rhythm. He was placed back on his oxygen and his saturations came up into the mid 90s% range. On rounds this morning his oxygen is off and he is in the 88 to 89% occasionally bumping 90% on his O2 saturations. Morning lab shows white count is up to 13,600 but he did receive a dose of steroids IV in the emergency room yesterday. Rest of his lab is unremarkable except for blood sugars which have been consistently high. Again this may be from steroids but I will order an A1c to see what he is been averaging the last quarter. Auscultation continues to show a lot of adventitious rhonchi and expiratory wheezes and some inspiratory rales in the bilateral bases posteriorly. His blood pressure is elevated some this morning at 166/77. He carries a diagnosis of uncontrolled diabetes but it appears he is on a high carb diet as he is got a whole does not chocolate glazed donuts and a box on his tray. We will begin diabetic education if his A1c comes back in diabetes range. Objective - Review of Systems Generalized/Overall Review: Reports: No Symptoms Reported EENTM: Reports: No Symptoms Reported Respiratory: Reports: Cough, Shortness of Breath, Wheezing Cardiac: Reports: No Symptoms Reported - But had an episode of atrial fibrillation this morning that auto converted during his breathing treatment. Abdominal: Reports: No Symptoms Reported Genitourinary Symptoms: Reports: No Symptoms Reported Musculoskeletal Complaints: Reports: No Symptoms Reported Neurological: Reports: No Symptoms Reported Skin: Reports: No Symptoms Reported Endocrine: Reports: No Symptoms Reported - Vitals Vitals: Last Vital Signs Temp 37.0 C 07/02/19 05:00 Pulse 95 07/02/19 05:49 Resp 20 07/02/19 05:49 BP 159/92 H 07/02/19 05:00 Pulse Ox 93 07/02/19 05:40 - Abnormal Lab Findings Abnormal Lab Findings: Abnormal Lab Results 07/01/19 07/01/19 07/01/19 Range/Units 09:50 09:50 10:00 WBC 11.5 H (4.0-10.5) K/mm3 RBC 4.42 L (4.7-6.0) M/mm3 MCH 32.1 H (27-31) pg RDW 14.6 H (11.5-14.0) % Immature Gran % (Auto) 0.50 H (0.001-0.429) % Immature Gran # (Auto) 0.06 H (0.000-0.0310) K/mm3 Neutrophils % 84.9 H (42-75.0) % Lymphocytes % 6.9 L (20-51) % Neutrophils # 9.8 H (1.3-6.0) K/mm3 Lymphocytes # 0.80 L (1.5-3.5) k/mm3 Monocytes # (0.0-1.0) k/mm3 Total CO2 25.2 H (19.0-24.0) mmol/L Plasma Sodium 144 H (130-142) mmol/L Potassium (3.4-4.6) mmol/L Random Glucose 201 H (70-110) mg/dL B-Natriuretic Peptide 1455 H (5-175) pg/mL Albumin (3.4-5.0) gm/dl 07/02/19 07/02/19 Range/Units 06:15 06:15 WBC 13.8 H (4.0-10.5) K/mm3 RBC 4.63 L (4.7-6.0) M/mm3 MCH 32.4 H (27-31) pg RDW 14.9 H (11.5-14.0) % Immature Gran % (Auto) 0.50 H (0.001-0.429) % Immature Gran # (Auto) 0.07 H (0.000-0.0310) K/mm3 Neutrophils % 80.4 H (42-75.0) % Lymphocytes % 10.0 L (20-51) % Neutrophils # 11.1 H (1.3-6.0) K/mm3 Lymphocytes # 1.38 L (1.5-3.5) k/mm3 Monocytes # 1.2 H (0.0-1.0) k/mm3 Total CO2 (19.0-24.0) mmol/L Plasma Sodium (130-142) mmol/L Potassium 3.3 L (3.4-4.6) mmol/L Random Glucose 193 H (70-110) mg/dL B-Natriuretic Peptide (5-175) pg/mL Albumin 3.2 L (3.4-5.0) gm/dl - EKG/Xray Findings EKG: NSR, atrial fibrillation - Intermittent and probably secondary to hypoxemia EKG read: Interp. by me XRAY: chest - From yesterday's admission chest x-ray Interpretation: Reviewed by me - Exam Constitutional: Present: Alert, Oriented x3, Cooperative, Well developed, Well nourished, No distress ENT Exam: Present: normal ENT inspection, hearing grossly normal, pharynx normal, TMs normal Neck: Present: non-tender, full range of motion, supple, normal inspection, trachea midline, limited range of motion Breasts: Present: Exam deferred, Nontender Respiratory: Present: chest non-tender, no accessory muscle use, rales, rhonchi, wheezing, expiration (prolonged) Cardiovascular/Chest: Present: normal peripheral pulses, regular rate, rhythm, no chest tenderness, no edema, no gallop, no JVD, no murmur, no rub Abdomen: Present: Normal bowel sounds, soft, nontender, nondistended, no rebound tenderness, no hepatospenomegaly, no masses /Rectal: Present: Exam deferred Extremity: Present: normal range of motion, non-tender, normal inspection, no pedal edema, no calf tenderness, normal capillary refill Skin Exam: Present: normal color, warm/dry, no cyanosis Lymphatic: Present: no adenopathy Neurologic: Present: plastics process hand II-XII nml as tested, normal cerebellar test, no motor/sensory deficits, alert, normal mood/affect - But disappointed that he cannot go home today. Appearance: Present: appropriate appearance, appropriate insight, no memory impairment, disheveled Eye contact: Present: cooperative, good eye contact, normal speech, avoids eye contact Thoughts: Present: normal thought pattern, no apparent hallucination Assessment/Plan Plan Narrative: 1. Continue respiratory therapy treatments 2. Continue cardiac monitoring 3. Continue IV antibiotics with ceftriaxone and oral azithromycin 4. Up ad libia. 5. Continue to attempt to wean from oxygen. 6. Add Cardizem CD 240 mg 1 p.o. daily for blood pressure control, rate and rhythm control, and for improved coronary perfusion. 7. Sputum and blood cultures are ordered today as they were not ordered on admission or in the emergency room. Antibiotics have already been administered. 8. Ambulate to tolerance - Problems/Diagnosis (1) Acute respiratory failure Problem: Acute Qualifiers: Respiratory failure complication: hypoxia Qualified Code(s): J96.01 - Acute respiratory failure with hypoxia (2) Hypoxemia Problem: Acute (3) Pneumonia Problem: Acute Qualifiers: Pneumonia type: due to unspecified organism Laterality: bilateral Lung location: unspecified part of lung Qualified Code(s): J18.9 - Pneumonia, unspecified organism (4) Paroxysmal atrial fibrillation Problem: Acute (5) COPD exacerbation Problem: Acute (6) Uncontrolled diabetes mellitus Problem: Chronic Qualifiers: Diabetes mellitus type: type 2 Glycemic state: with hyperglycemia Qualified Code(s): E11.65 - Type 2 diabetes mellitus with hyperglycemia (7) Current every day smoker Problem: Chronic
[2019-07-02] MEDS: DILTIAZEM HCL 240 MG CAP.SR.24H PO SCH (10:38)
[2019-07-02] MEDS: AZITHROMYCIN 250 MG TABLET PO SCH (12:29)
[2019-07-02] MEDS: ACETAMINOPHEN 500 MG TABLET PO PRN (18:40)
[2019-07-02] MEDS ORDERED: MONTELUKAST SODIUM 10 MG TABLET PO SCH (21:00)
[2019-07-03] MEDS: ALBUTEROL SULFATE/IPRATROPIUM 3 ML NEBU IH SCH ×3 (06:07→14:25)
[2019-07-03 06:45] LABS: Hematocrit 49.1 % (42.0-52.0); Hemoglobin 15.8 gm/dL (13.5-18.0); Mean Cell Volume 99.8 fl (78-100); Mean Corpuscular Hemoglobin 32.1 pg (27-31); Mean Corpuscular Hgb Conc 32.2 g/dl (32-36); Mean Platelet Volume 10.1 fl (8-11.3); Neutrophil # 6.6 K/mm3 (1.3-6.0); Neutrophil % 62.9 % (42-75.0); Platelet Count 221 K/mm3 (150-450); Red Blood Count 4.92 M/mm3 (4.7-6.0); Red Cell Distribution Width 15.2 % (11.5-14.0); White Blood Count 10.5 K/mm3 (4.0-10.5)
[2019-07-03 07:02] LABS: Albumin * 2.9 gm/dl (3.4-5.0); Anion Gap 6.9 mmol/L (6.8-13.8); BUN/Creatinine Ratio 23.3 (9.0-21.6); Bilirubin, Total 0.4 mg/dL (0.0-1.1); Ca. Corrected For Albumin 9.1 mg/dL (8.4-10.2); Calcium * 8.5 mg/dL (7.9-10.9); Carbon Dioxide 32.2 mmol/L (24-32.6); Potassium 4.1 mmol/L (3.4-4.6); Total Protein 6.9 gm/dL (6.2-8.2)
[2019-07-03] MEDS: OXYBUTYNIN CHLORIDE 5 MG TABLET PO SCH (08:51)
[2019-07-03] MEDS: busPIRone HCL 5 MG TABLET PO SCH (08:51)
[2019-07-03] MEDS: LISINOPRIL 10 MG TABLET PO SCH (08:52)
[2019-07-03] MEDS: GABAPENTIN 600 MG TABLET PO SCH ×2 (08:52→12:34)
[2019-07-03] MEDS: DILTIAZEM HCL 240 MG CAP.SR.24H PO SCH (08:52)
[2019-07-03] MEDS: INSULIN GLARGINE,HUM.REC.ANLOG 100 UNITS/ML VIAL SC SCH (08:55)
[2019-07-03] MEDS ORDERED: ENOXAPARIN SODIUM 40 MG/0.4 ML SYRG SC SCH (12:15)
[2019-07-03] MEDS: AZITHROMYCIN 250 MG TABLET PO SCH (12:34)
--- NOTE | 2019-07-03 13:07 | DS ---
(1) Acute respiratory failure Problem: Acute Qualifiers: Respiratory failure complication: hypoxia Qualified Code(s): J96.01 - Acute respiratory failure with hypoxia (2) Pneumonia Problem: Acute Qualifiers: Pneumonia type: due to unspecified organism Laterality: bilateral Lung location: unspecified part of lung Qualified Code(s): J18.9 - Pneumonia, unspecified organism (3) Hypoxemia Problem: Acute (4) CHF (congestive heart failure) Problem: Acute Qualifiers: Heart failure type: high output Qualified Code(s): I50.83 - High output heart failure (5) COPD exacerbation Problem: Acute (6) Paroxysmal atrial fibrillation Problem: Acute Date of Discharge:: 07/03/19 Description of Stay: Jakub musa is a 54-year-old gentleman who was admitted through the emergency room with acute respiratory failure, hypoxemia, CHF, and pneumonia. He was started on IV antibiotics including Rocephin and Zithromax IV. Initial blood cultures and sputum culture were not collected. I discovered this yesterday and ordered both at that time. He was started on respiratory therapy treatments and supplemental oxygen. He was requiring supplemental oxygen yesterday to keep his O2 sats in the 90s. Without it he was in the mid to upper 80s. Today he is ambulatory and maintaining his oxygen level above 90%. Auscultation yesterday revealed a lot of wheezing and adventitious rhonchi. Today the wheezing is much improved. He still has rhonchi posteriorly especially. He is now having a loose productive cough. He has remained afebrile. Initially his white count was a bit elevated in the 12-13,000 range and today is normal at 10,000. Chest x-ray initially showed perihilar pneumonias and evidence of some mild congestive heart failure. He is responded very well to therapy. He is a current every day smoker and has not smoked since being in the hospital. I have admonished him that he must quit smoking or else he will have a lot more of these admissions. He has a nebulizer at home to do breathing treatments with. He does not have home oxygen. Clinically he is significantly improved in the last 24 hours and can go home. He does have a history of coronary artery disease and a mildly decreased ejection fraction. The congestive failure however I believe was a high output failure due to his pneumonia. His admission presentation when he was in acute respiratory failure with hypoxemia seemingly has been resolved. I did have him monitored for cardiac dysrhythmias and he did go into intermittent atrial fibrillation and then converted. Blood pressure was elevated I started him on Cardizem CD for rate and rhythm control and blood pressure control as well as improving coronary artery perfusion. His disposition is improved and his prognosis is fair. Procedures Performed: none Results and Findings: Pending Mircobiology Results 07/02/19 09:34 Blood Blood Culture - Preliminary NO GROWTH 24 HOURS 07/02/19 06:20 Blood Blood Culture - Preliminary NO GROWTH 24 HOURS Lab Pending Results 07/01/19 09:50: WBC 11.5 H, RBC 4.42 L, Hgb 14.2, Hct 42.7, MCV 96.6, MCH 32.1 H, MCHC 33.3, RDW 14.6 H, Plt Count 181, MPV 9.9, Immature Gran % (Auto) 0.50 H, Immature Gran # (Auto) 0.06 H, Neutrophils % 84.9 H, Lymphocytes % 6.9 L, Monocytes % 7.2, Eosinophils % 0.2, Basophils % 0.3, Nucleated RBC % 0.0, Neutrophils # 9.8 H, Lymphocytes # 0.80 L, Monocytes # 0.8, Eosinophils # 0.0, Absolute Basophils 0.0 07/01/19 09:50: Sodium 142, Plasma Sodium 144 H, Potassium 4.1, Chloride 106, Carbon Dioxide 26.6, Anion Gap 13.5, BUN 10, Creatinine 0.77, Est GFR (Non-Af Amer) 111, BUN/Creatinine Ratio 13.0, Random Glucose 201 H, Calcium 8.4, Calcium Adj for Albumin 8.6, Total Bilirubin 1.0, AST 18, ALT 34, Alkaline Phosphatase 113, B-Natriuretic Peptide 1455 H, Total Protein 7.1, Albumin 3.4 07/01/19 10:00: pCO2 37.5, pO2 83.1, HCO3 24.1, Total CO2 25.2 H, Base Excess 0.0, ABG pH 7.43, ABG O2 Sat (Measured) 96.5 07/02/19 06:15: WBC 13.8 H, Corrected WBC (auto) No Print, RBC 4.63 L, Hgb 15.0, Hct 45.0, MCV 97.6, MCH 32.4 H, MCHC 33.2, RDW 14.9 H, Plt Count 202, MPV 10.0, Immature Gran % (Auto) 0.50 H, Immature Gran # (Auto) 0.07 H, Neutrophils % 80.4 H, Lymphocytes % 10.0 L, Monocytes % 8.6, Eosinophils % 0.3, Basophils % 0.2, Nucleated RBC % 0.0, Neutrophils # 11.1 H, Lymphocytes # 1.38 L, Monocytes # 1.2 H, Eosinophils # 0.0, Absolute Basophils 0.0 07/02/19 06:15: Sodium 138, Plasma Sodium 139, Potassium 3.3 L, Chloride 102, Carbon Dioxide 28.9, Anion Gap 10.4, BUN 18 D, Creatinine 0.86, Est GFR (Non-Af Amer) 98, BUN/Creatinine Ratio 20.9, Random Glucose 193 H, Calcium 8.4, Calcium Adj for Albumin 8.7, Total Bilirubin 0.6, AST 11, ALT 30, Alkaline Phosphatase 120, Total Protein 7.1, Albumin 3.2 L 07/03/19 06:40: WBC 10.5 D, RBC 4.92, Hgb 15.8, Hct 49.1, MCV 99.8, MCH 32.1 H, MCHC 32.2, RDW 15.2 H, Plt Count 221, MPV 10.1, Immature Gran % (Auto) 0.30, Immature Gran # (Auto) 0.03, Neutrophils % 62.9, Lymphocytes % 20.4, Monocytes % 12.6 H, Eosinophils % 3.1 H, Basophils % 0.7, Nucleated RBC % 0.0, Neutrophils # 6.6 H, Lymphocytes # 2.14, Monocytes # 1.3 H, Eosinophils # 0.3, Absolute Basophils 0.1 07/03/19 06:40: Sodium 140, Plasma Sodium 140, Potassium 4.1 D, Chloride 105, Carbon Dioxide 32.2, Anion Gap 6.9, BUN 20, Creatinine 0.86, Est GFR (Non-Af Amer) 98, BUN/Creatinine Ratio 23.3 H, Random Glucose 103 D, Calcium 8.5, Calcium Adj for Albumin 9.1, Total Bilirubin 0.4, AST 9, ALT 24, Alkaline Phosphatase 109, Total Protein 6.9, Albumin 2.9 L 07/03/19 06:40: Mean Blood Glucose 147, Hemoglobin A1c 7.0 H Discharge Location: Home Disposition: Home self-care Condition: Stable Face to Face Encounter completed per CMS Guidelines: No Discharge Activity: Activity as tolerated Discharge Diet: Consistent carbs Referrals: Husam Edwards DO [Primary Care Provider] - Additional Patient Instructions (free text): TCM appointment at discharge. See Dr. Edwards in the office in 2 weeks. Absolutely no smoking. Prescriptions (Any new or edited meds): Cefuroxime Axetil [Ceftin] 500 mg PO BID #14 tab Transmission Status: Pending to [place], [place] Complete Home Medications List: Complete Home Medication List: gabapentin 600 mg tablet 600 mg PO TID #90 tab 11/17/18 ipratropium-albuterol 0.5 mg-3 mg(2.5 mg base)/3 mL nebulization soln 3 ml IH Q4H PRN #180 ml 11/17/18 levalbuterol tartrate 45 mcg/actuation aerosol inhaler 2 inh IH Q4H #15 g 11/17/18 lisinopril 10 mg tablet 10 mg PO DAILY #30 tab 11/17/18 tramadol 50 mg tablet 50 mg PO Q6H PRN #60 tab 11/18/18 insulin detemir U-100 100 unit/mL subcutaneous solution 100 unit SUBCUT BID #60 ml 01/21/19 Oxybutynin Chloride [Ditropan Xl] 10 mg PO DAILY 07/01/19 busPIRone HCL [Buspar] 10 mg PO BID 07/01/19 Acetaminophen [Tylenol] 500 mg PO Q4H PRN tablet 07/03/19 Albuterol Sulfate/Ipratropium [Duoneb 2.5-0.5MG/3ML Soln] 3 ml INHALATION QID #150 vial 07/03/19 Azithromycin [Zithromax] 250 mg PO DAILY@1315 #2 tab 07/03/19 Cefuroxime Axetil [Ceftin] 500 mg PO BID #14 tab 07/03/19 Diltiazem HCl [Cardizem Cd] 240 mg PO Q24H #30 cap.sr.24h 07/03/19 Montelukast Sodium [Singulair] 10 mg PO HS #30 tab 07/03/19
[2019-07-03 14:21] VITALS: BP 151/65
== END 2019-07-03 15:20 | disposition home or self-care (01) | DRG 193 ==
LOC: ER 09:33 → MS 12:23
PROVIDERS: ADMIT Family Medicine; ATTEND Family Medicine
DX: F17.210 Nicotine dependence, cigarettes, uncomplicated; E11.65 Type 2 diabetes mellitus with hyperglycemia; I48.0 Paroxysmal atrial fibrillation; K21.9 Gastro-esophageal reflux disease without esophagitis; J18.9 Pneumonia, unspecified organism; Z79.4 Long term (current) use of insulin; Z23 Encounter for immunization; I50.83 High output heart failure; J44.1 Chronic obstructive pulmonary disease with (acute) exacerbation; F32.89 Other specified depressive episodes; I11.0 Hypertensive heart disease with heart failure; J96.01 Acute respiratory failure with hypoxia
CPT/HCPCS: 36415; 36600; 71010; 71020; 71045; 71046; 80053; 82803; 83036; 83519; 83880; 85025; 87040; 87081; 90686; 93005; 94640; 94664; 96374; 96375; 99285